=== PATIENT | male | born 1940 | race Caucasian/White ===

== ENCOUNTER → 2017-08-14 | Outpatient (CLI) | payer OTHER ==
--- NOTE | 2017-08-14 12:59 | DIAGNOSTIC IMAGING REPORT ---
ULTRASOUND KIDNEYS AND BLADDER CLINICAL HISTORY: Nephrolithiasis. COMPARISON STUDY: Abdominal CT dated 02/03/2016. TECHNIQUE: Real-time, grayscale, and color flow sonography of the kidneys and bladder is performed. Images are reviewed in the transverse and longitudinal planes. FINDINGS: Kidneys: The kidneys demonstrate cortical atrophy and are normal in echotexture. The right kidney measures 14.0 x 4.6 x 5.8 cm and the left kidney measures 13.7 x 6.1 x 5.6 cm. There is no hydronephrosis. No shadowing renal calculi are identified. There are numerous simple cysts seen in both kidneys. The largest is present on the left and measures 3.9 cm. A 2.9 cm complex structure in the right renal pelvis likely represents a complex/hemorrhagic cyst when correlated with the 2016 CT scan. There is no sonographic evidence of contour deforming renal mass lesion. No perinephric fluid is identified. Bladder: The prostate gland is enlarged and heterogeneous, measuring 5.7 cm in transverse diameter. There is median lobe hypertrophy. The bladder wall is thickened and trabeculated indicating chronic outlet obstruction. Bilateral ureteral jets were seen. IMPRESSION: 1. The kidneys demonstrate mild cortical atrophy and are without hydronephrosis. 2. Numerous bilateral renal cysts are identified as above. A complex cyst is again noted in the right renal pelvis. 3. No shadowing calculi are identified. 4. Prostatomegaly with evidence of chronic bladder outlet obstruction. Electronically signed by: Igor Martínez M.D. 08/14/2017 12:58 PM Dictated Date/Time: 08/14/2017 12:55 PM
== END | disposition home or self-care (01) ==
LOC: C.ULTR 11:30
PROVIDERS: ATTEND Urology
DX: N20.0 Calculus of kidney (principal)

== ENCOUNTER 2021-11-20 20:56 | Observation (INO) ==
[2021-11-20] MEDS ORDERED: MoRPHine SULFATE 2 MG/ML CARP IV STA (21:42)
[2021-11-20] MEDS ORDERED: MoRPHine SULFATE 4 MG/ML 1 ML CARP\\VIAL IV STA (23:00)
--- NOTE | 2021-11-20 23:00 | Emergency Department Note ---
History of Present Illness General Chief complaint: Fall Stated complaint: FALL w/LOC Time Seen by Provider: 11/20/21 21:29 Source: patient and family Mode of arrival: EMS Limitations: no limitations History of Present Illness Provider complaint: fall, head trauma Onset (ago): hour(s) Location: head This is a 81 yo male brought by EMS with at bedside after an accidental fall at home. Patient uses a walker. states he got up with his walker, tried to turn and became off balance and fell, striking his head and face. She does not believe he lost consciousness. No seizure like activity noted. There was increased bleeding from an area of a wound related to known melanoma. Patient with several facial lesions, covered with dressing. states a nurse comes to change the dressing every other day. Patient admits to pain over the left eyebrow, denies any other headaches, neck or back pain, chest pain, abdominal pain, nausea, dizziness, or vision changes. states he does become tired and lightheaded easily, is occasionally confused, and sometimes does become off balance. states he has decided not to pursue any additional treatment for his melanoma and has been in hospice for 2 months. Pt seen during a time of high acuity and national emergency pandemic while wearing PPE. Home Medications Medication Instructions Recorded Confirmed Type amlodipine 2.5 mg tablet 2.5 mg PO QAM 01/14/21 01/17/21 History aspirin 81 mg tablet,delayed 81 mg PO QPM 01/14/21 01/17/21 History release cholecalciferol (vitamin D3) 25 25 mcg PO QAM 01/14/21 01/14/21 History mcg (1,000 unit) capsule cyanocobalamin (vitamin B-12) 500 500 mcg PO QAM 01/14/21 01/14/21 History mcg tablet hydrochlorothiazide 25 mg tablet 12.5 mg PO Q2D 01/14/21 01/17/21 History insulin detemir U-100 100 unit/mL 34 unit SUBCUT HS 01/14/21 01/17/21 History (3 mL) subcutaneous pen levothyroxine 50 mcg capsule 50 mcg PO QAM 01/14/21 01/17/21 History losartan 100 mg tablet 100 mg PO QAM 01/14/21 01/14/21 History magnesium oxide 400 mg PO QAM 01/14/21 01/14/21 History metformin 500 mg tablet 1,000 mg PO BID 01/14/21 01/17/21 History metoprolol succinate 50 mg 50 mg PO BID 01/14/21 01/17/21 History tablet,extended release 24 hr simvastatin 20 mg tablet 20 mg PO PM 01/14/21 01/17/21 History trazodone 50 mg tablet 50 mg PO HS 01/14/21 01/17/21 History oxycodone-acetaminophen 5 mg-325 1 tab PO Q6H PRN #14 tab 01/17/21 Rx mg tablet (Percocet) insulin detemir U-100 100 unit/mL unit SUBCUT 11/20/21 11/20/21 History (3 mL) subcutaneous pen (Levemir FlexTouch U-100 Insulin) morphine concentrate 100 mg/5 mL 100 mg PO 11/20/21 History (20 mg/mL) oral solution nortriptyline 10 mg capsule 10 mg PO 11/20/21 History sennosides 8.6 mg tablet (Senna 8.6 mg PO 11/20/21 History Laxative) trazodone 50 mg tablet 50 mg 11/20/21 History Allergies Allergy/AdvReac Type Severity Reaction Status Date / Time No Known Allergies Allergy Verified 01/17/21 07:12 Past Med/Surg History Medical History Atrial fibrillation No longer on Coumadin 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 CAD (coronary artery disease) Moderate per 2006 cath CKD (chronic kidney disease) stage 3, GFR 30-59 ml/min Diabetes mellitus Type II Dyslipidemia History of TIA (transient ischemic attack) 2005-NO ISSUES SINCE Hypertension Hypothyroidism Kidney stones Pacemaker Placed initially in 2005 ([facility]); revision of device 2016 Renal mass Noted on u/s in 2016- followed by urology Squamous cell carcinoma, scalp/neck Surgical History History of cholecystectomy History of colonoscopy History of cystoscopy FOR KIDNEY STONES S/P placement of cardiac pacemaker Family History Father Family history of diabetes mellitus Mother Family hx of colon cancer Social History Smoking Status: Never smoker Second Hand Exposure: No; Do You Dip or Chew Tobacco: No; Tobacco Cessation Education Requested by Patient: No Hx Alcohol Use: No Hx Substance Use: No Preferred Language: Peruvian Communication Ability: Impaired Line Production Cook Required: No Beliefs That Will Affect Care: None Current Living Situation: Spouse current occupational status: retired Other Information That Helps Us Care for You: No Feels Safe at Home: Yes Safety Concerns: Feels Safe At This Time Assistive Devices: Walker Review of Systems A total of 10 systems reviewed and were otherwise negative All systems reviewed & are unremarkable except as noted in HPI & below Physical Exam Vital Signs Vital Signs - 24 hr 11/20/21 21:18 Temperature 36.7 C Temperature Source Oral Pulse Rate 120 H Respiratory Rate 20 Respiratory Effort / Characteristics Non-Labored Spontaneous Blood Pressure 174/101 H Blood Pressure Mean 125 Pulse Oximetry 99 Oxygen Delivery Method Room Air Sepsis New/Unexplained Change in Mental Status No Sepsis Action Taken by Nursing No Action Required GENERAL: alert, unwell appearing, well nourished, no distress, non-toxic HEAD: nc, contusion noted left lateral forehead, multiple wounds noted to left face, covered with dressing, cheek wound appears to have some drainage; no further active bleeding from left congregation wound, large scaly/crusted growth noted at left mandible, right sided lesion involving ear EYE EXAM: normal conjunctiva, PERRL and EOM's grossly intact OROPHARYNX: no exudate, no erythema, lips, buccal mucosa, and tongue normal and mucous membranes are moist NECK: supple, no nuchal rigidity, no adenopathy, non-tender LUNGS: Clear to auscultation. Normal chest wall mechanics, no w/r/r CHEST WALL: no pain with palpation, no crepitus HEART: no murmurs, S1 normal and S2 normal ABDOMEN: abdomen soft, non-tender, normo-active bowel sounds, no masses, no rebound or guarding. BACK: Back is symmetrical on inspection and there is no deformity, no midline tenderness, no CVA tenderness. SKIN: no rashes and no bruising UPPER EXTREMITIES: upper extremities are grossly normal. FROM, nml pulses b/l. No evidence of trauma or deformity. LOWER EXTREMITIES: No pitting edema. FROM, nml pulses b/l. No evidence of trauma or deformity. NEURO EXAM: Normal sensorium, cranial nerves II-XII grossly intact, normal speech, no gross weakness of arms, no gross weakness of legs. Gross sensation intact. Course Course 2315: I updated the patient and at bedside on the findings of the CT. Extensive conversation regarding condition and risks with new injury. Patient is currently hospice patient due to his advanced melanoma. Patient's requested to contact her son and I updated him at her request over the phone on the CT findings in addition. They would like to discuss options for treatment at this time. 2336: doesn't want him transferred to a trauma facility, would like to keep in at home in hospice. 2355: DAughter concerned about 's ability to care for him with worsening weakness and now accompanying head injury. Discussed observation here while they have hospice make additional arrangement for his care at home. Administered Medications Hydromorphone HCl (Hydromorphone Inj 0.5 Mg/0.5 Ml Syr) 0.5 mg IV Q3H PRN PRN Reason: Pain Stop: 12/05/21 03:19 Last Admin: 11/21/21 11:45 Dose: 0.5 mg Documented by: [id number] Insulin Aspart (Insulin Aspart Per Unit) 0 units SC ACHS GORDY Stop: 12/21/21 07:29 Last Admin: 11/22/21 20:47 Dose: 2 units Documented by: [id number] Cosigned by: [id number] Admin: 11/22/21 18:12 Dose: 2 units Documented by: [id number] Cosigned by: [id number] Admin: 11/22/21 13:13 Dose: 2 units Documented by: [id number] Cosigned by: [id number] Admin: 11/22/21 08:50 Dose: 5 units Documented by: [id number] Cosigned by: [id number] Admin: 11/21/21 20:55 Dose: 2 units Documented by: [id number] Cosigned by: [id number] Admin: 11/21/21 18:22 Dose: 1 units Documented by: [id number] Cosigned by: [id number] Admin: 11/21/21 13:12 Dose: 1 units Documented by: [id number] Cosigned by: [id number] Admin: 11/21/21 08:39 Dose: 13 units Documented by: [id number] Cosigned by: [id number] Discontinued Medications Sodium Chloride (Nss 1000ml) 1,000 mls @ 50 mls/hr IV .Q20H GORDY Stop: 12/21/21 03:19 Last Infusion: 11/21/21 18:01 Dose: 0 mls/hr Documented by: [id number] Admin: 11/21/21 03:49 Dose: 50 mls/hr Documented by: [id number] Morphine Sulfate (Morphine Sulfate 2 Mg/Ml Carp) 2 mg IV NOW STA Stop: 11/20/21 21:43 Last Admin: 11/20/21 22:11 Dose: 2 mg Documented by: [id number] Morphine Sulfate (Morphine Sulfate 4 Mg/Ml 1 Ml Carp\Vial) 4 mg IV NOW STA Stop: 11/20/21 23:01 Last Admin: 11/20/21 23:06 Dose: 4 mg Documented by: [id number] Morphine Sulfate (Morphine Sulfate 2 Mg/Ml Carp) 2 mg IV NOW STA Stop: 11/21/21 01:24 Last Admin: 11/21/21 01:47 Dose: 2 mg Documented by: [id number] Morphine Sulfate (Morphine Sulfate 2 Mg/Ml Carp) 2 mg IV NOW STA Stop: 11/21/21 01:38 Last Admin: 11/21/21 01:47 Dose: 2 mg Documented by: [id number] Ondansetron HCl (Ondansetron Inj 2 Mg/Ml 2 Ml Vial) 4 mg IV NOW STA Stop: 11/21/21 01:38 Last Admin: 11/21/21 01:47 Dose: 4 mg Documented by: [id number] Critical Care Time Critical Care Time: Yes Total Critical Care Time: 35 Critical care of 35 min performed to assess and manage high likelihood of life- threatening traumatic SAH, involving labs and imaging performed with assessment to evaluate CHI with SAH diagnosis with frequent reassessment. This time includes bedside time, treatment discussions with patient/family/consultants, documentation time and excludes procedure time. Medical Decision Making Differential Diagnosis Differential diagnoses include major intracranial, cervical, spinal, thoracic, abdominal, pelvic and neurologic injury. Fracture, contusion, sprain, strain, laceration, abrasions included as well. Medical Records Attestation: I reviewed the patient's medical records. Home Medications Current Medication List: was personally reviewed by me Laboratory Data Attestation: I reviewed the patient's lab results. Lab Results 11/21/21 Range/Units 01:30 SARS-CoV-2, RNA, NAAT NEGATIVE (NEGATIVE) Imaging Data Radiologist's Impression: CT head: Moderate left anterior temporal scalp hematoma. Mild bifrontal subarachnoid hemorrhage. No skull fracture. Large right mastoid effusion. And soft tissue thickening right external auditory canal, including a small droplet of air superficial to the right parotid gland, nonspecific and age-indeterminate. Acute infection not excluded. Moderate motion artifact limits evaluation. Radiologist: Marce Nails MD CT C-spine: No fracture or acute bony abnormality. Moderate to severe degenerative disc and facet disease. Partially imaged right mastoid effusion and soft tissue air, superficial to the parotid gland. Incidental right jugular central line. Radiologist: Marce Nails MD MDM Narrative THis is an 81 yo male on hospice due to significant melanoma who presents following a fall. Patient sent for CT imaging and sound to have traumatic SAH. Discussed options with his who also contacted other family. Patient will be admitted here for observation to allow to make additional arrangement with hospice for his continued care at home. No transfer. Patient is DNR/DNI. CAse discussed with hospitalist. patient given several doses of morphine for pain. Impression & Plan CHI (closed head injury), Subarachnoid hemorrhage, Fall at home, Melanoma Discharge Plan Visit Data Chief Complaint: Fall Stated Complaint: FALL w/LOC ED Provider: Shari Means Discharge Problem: CHI (closed head injury), Subarachnoid hemorrhage, Fall at home, Melanoma Patient Disposition: Admitted As Inpatient Discharge Instructions Interventions: ED Discharge Assessment Last Done: 11/21/21 02:56 Discharge Problem: CHI (closed head injury) Qualifiers: Encounter type: initial encounter Qualified Code(s): S09.90XA - Unspecified injury of head, initial encounter Fall at home Qualifiers: Encounter type: initial encounter Qualified Code(s): W19.XXXA - Unspecified fall, initial encounter Melanoma Qualifiers: Melanoma location: unspecified site Qualified Code(s): C43.9 - Malignant melanoma of skin, unspecified
[2021-11-21] MEDS ORDERED: MoRPHine SULFATE 2 MG/ML CARP IV STA ×2 (01:23→01:37)
[2021-11-21] MEDS ORDERED: ONDANSETRON INJ 2 MG/ML 2 ML VIAL IV STA (01:37)
[2021-11-21] MEDS ORDERED: SODIUM CHLORIDE 0.9% 1000ML 1,000 ML IV SCH (03:20)
[2021-11-21] MEDS ORDERED: POLYETHYLENE (MIRALAX) 17 GM PACK PO PRN (03:20)
[2021-11-21] MEDS ORDERED: HYDROmorphone INJ 0.5 MG/0.5 ML SYR IV PRN (03:20)
[2021-11-21] MEDS ORDERED: ACETAMINOPHEN 325 MG TAB PO PRN (03:20)
[2021-11-21] MEDS ORDERED: ONDANSETRON INJ 2 MG/ML 2 ML VIAL IV PRN (03:20)
[2021-11-21] MEDS ORDERED: GLUCAGON FOR INJ 1 MG VIAL IM PRN (03:45)
[2021-11-21] MEDS ORDERED: GLUCOSE 40% GEL 15 GM TUBE PO PRN (03:45)
[2021-11-21] MEDS ORDERED: DEXTROSE 50% 50 ML SYRINGE IV PRN (03:45)
[2021-11-21] MEDS ORDERED: GLUCOSE 10 TABS/TUBE PO PRN (03:45)
[2021-11-21] MEDS ORDERED: CARBOHYDRATES FOR HYPOGLYCEMIA PO PRN (03:45)
--- NOTE | 2021-11-21 07:24 | History and Physical Report ---
CHIEF COMPLAINT: Fall, subarachnoid hemorrhage. HISTORY OF PRESENT ILLNESS: An 81-year-old male with past medical history significant for diabetes, chronic kidney disease, hypertension, history of metastatic squamous cell carcinoma of skin, who is on hospice care at home, comes with a fall while ambulating today. He ambulates with a walker. Imaging studies show frontal subarachnoid hemorrhage. He is living with his . brought him to the hospital. The family did not want him to transfer to tertiary care. They want to keep him comfortable. Plan for possible [facility] hospice tomorrow and possible home hospice if he is stable later with more help at home. The patient is currently receiving morphine and resting comfortably. Denies any pain currently. Denies any chest pain or shortness of breath. Denies any nausea, but could not get much history from the patient.Able to talk with her daughter, Lilian, who is the power of staff attorney. Her phone number is [phone]. She lives in [place]. She says she is coming once every week to see her father and mother. Her brother is also in [place], who is able to drive today and he took their mother to the house. Mother had a stroke 6 years ago and with the current situation, they think, she could not take care of their dad. Before he goes home, they want more help at home. Case management is emergency respite care which seems allows for 5 days in the [facility] hospice. As per the daughter, currently he is under home hospice, not getting any treatment for his metastatic squamous cell carcinoma. As per heme/onc notes on 08/03/2021, the patient had received immunotherapy with followup CT scan showing disease progression and after that, the patient declined any further therapy and is currently under hospice care. As per daughter, there was no recent fever or chills. No nausea, no vomiting, no diarrhea. Appetite is coming down and is getting more weak lately. Ambulating has become difficult lately. ALLERGIES: No known drug allergies. PAST MEDICAL HISTORY: As mentioned above. PAST SURGICAL HISTORY: Colonoscopy, laparoscopic cholecystectomy, tonsillectomy, repair of inguinal hernia. MEDICATIONS: As per Epic, nortriptyline 10 mg p.o. at bedtime, lidocaine viscous throat solution p.r.n., metronidazole 250 mg powder sprinkled into the wound during each dressing, morphine sulfate 0.25 mL every 4 hours p.r.n., hydroxyzine 25 mg p.o. t.i.d. p.r.n., Levemir 38 units at bedtime, trazodone 50 mg p.o. at bedtime, levothyroxine 50 mcg p.o. daily. FAMILY HISTORY: Significant for mother had colon cancer, father had diabetes, heart disorder. Paternal grandmother had diabetes. SOCIAL HISTORY: Currently living with his . No tobacco use in the past. No alcohol. No drug use. REVIEW OF SYSTEMS: As per HPI. Could not complete review of systems as the patient is currently confused. PHYSICAL EXAMINATION: GENERAL: The patient is drowsy, not in acute distress. VITAL SIGNS: Temperature 36.7, pulse 109, respiratory rate 20, blood pressure 176/106, oxygen 98% on room air. HEENT: Has large wound in his right neck region below the ear, dressing on his left temporal region. Oral mucosa dry. CARDIOVASCULAR: S1 and S2 heard. Regular rate and rhythm. No murmur, no gallop. RESPIRATORY SYSTEM: Normal AP diameter. No accessory muscle use. No wheezing, no crackles. ABDOMEN: Soft, bowel sounds present, nontender, no distention. CENTRAL NERVOUS SYSTEM: Drowsy, tries to answer simple questions, moving extremities. EXTREMITIES: No edema, no erythema. LABORATORY DATA: SARS-CoV-2 negative. IMAGING DATA: CT of the head, preliminary report, moderate left anterior temporal scalp hematoma. Mild bifrontal subarachnoid hemorrhage, no skull fracture. Cervical spine CT, preliminary report, no fracture or acute bony abnormality. ASSESSMENT AND PLAN: This is an 81-year-old male who is on home hospice care for his metastatic squamous cell carcinoma of skin, presents with a fall and has subarachnoid hemorrhage. Currently, goal is to keep the patient comfortable, no transfer as per the family. The patient is DNR/DNI. Coming from hospice from home. Plan for hospice [facility] and eventually if stable, plan for hospice home with more help.. 1. Metastatic squamous cell carcinoma of skin, currently under hospice care with pain control, wound care and dressings. 2. Diabetes. We will place him on insulin sliding scale. 3. Hypothyroidism Synthroid if he is able to take p.o. 4. Deep venous thrombosis prophylaxis with SCD. DISPOSITION: To be determined. Social service to help with discharge planning. CODE STATUS: DNR/DNI. Job ID: [id number] [facility]ITALStacy
--- NOTE | 2021-11-21 07:31 | CT Scan Report ---
CT head/brain wo con CLINICAL HISTORY: 81 years-old Male with trauma. Acute head trauma status post fall TECHNIQUE: Multiple axial CT images of the head were obtained without contrast. A dose lowering tech nique was utilized adhering to the principles of ALARA. COMPARISON: Outside institution PET CT 10/18/2020 FINDINGS: Age-related involutional changes with white matter hypodensities suggestive of chronic microvascular ischemic disease. The study is mildly motion degraded. Trace acute subarachnoid hemorrhage of the natasha ateral frontal lobes (please see images 21 and 24 of series 2). Trace layering hemorrhage is noted wi thin the posterior horn of the left lateral ventricle. No acute intraparenchymal hemorrhage, midline shift, hydrocephalus or intracranial mass. There is a large right mastoid effusion with fluid also noted within the right middle ear cavity. No definite acute calvarial or temporal bone fracture identified. The left mastoid air cells and paranas al sinuses are clear. There are several scalp contusions with suggested lacerations of the bilateral cheeks. Prior bilateral lens repair. Soft tissue swelling within the right external auditory canal. IMPRESSION: 1. Trace acute subarachnoid hemorrhage of the frontal lobes with trace layering hemorrhage within the posterior horn left lateral ventricle. 2. No acute intraparenchymal hemorrhage or midline shift. 3. There are several scalp contusions without acute calvarial fracture identified. 4. Large right mastoid effusion with soft tissue swelling within the distribution of the right chrome plater al auditory canal. These findings are new from 10/18/2020. Within the setting of acute trauma, finding s may be associated with an occult temporal bone fracture. Follow-up recommended. ACT 112: Negative or not required by law. The above report was generated using voice recognition software. It may contain grammatical, syntax o r spelling errors. Electronically signed by: Marquise Bui M.D. 11/21/2021 7:30 AM
[2021-11-21] MEDS: INSULIN ASPART PER UNIT SC SCH ×4 (08:39→20:55)
--- NOTE | 2021-11-21 08:50 | CT Scan Report ---
CT cervical spine wo con CT DOSE: 1244.72 mGy.cm CLINICAL HISTORY: 81 years-old Male with trauma. Acute neck trauma COMPARISON: Head CT of same day TECHNIQUE: Multiple axial CT images of the cervical spine were obtained without contrast. A dose low ering technique was utilized adhering to the principles of ALARA. FINDINGS: Severe multilevel bridging osteophytosis with facet arthrosis. Multilevel intervertebral di sc space narrowing, severe at C5-C6. No acute fracture or subluxation of the cervical spine identifie d. Multilevel neural foraminal narrowing. Large right mastoid effusion with soft tissue edema within the distribution of the external auditory canal. Masslike soft tissue prominence lateral to the right parotid gland measures up to 5.1 cm. Flui d is also present within the right middle ear cavity. No pneumothorax. Right IJ central venous cathet er. IMPRESSION: 1. No acute cervical spine fracture or subluxation. 2. Large right mastoid and middle ear effusions. Masslike soft tissue prominence lateral to the right parotid gland measures over 5 cm with inflammatory stranding within the adjacent soft tissues of the neck and right parotid gland. Correlate with clinical exam findings to exclude a soft tissue mass. ACT 112: Negative or not required by law. The above report was generated using voice recognition software. It may contain grammatical, syntax o r spelling errors. Electronically signed by: Marquise Bui M.D. 11/21/2021 8:48 AM
--- NOTE | 2021-11-21 09:24 | CT Scan Report ---
CT head/brain wo con CLINICAL HISTORY: 81 years-old Male with subarachnoid hemorrhage. Follow-up study in a patient with subarachnoid hemorrhage. TECHNIQUE: Multiple axial CT images of the head were obtained without contrast. A dose lowering tech nique was utilized adhering to the principles of ALARA. CT DOSE: 614.27 mGy.cm COMPARISON: CT head and cervical spine studies 11/20/2021, PET CT 10/18/2020 FINDINGS: Age-related involutional changes with white matter hypodensities suggestive of chronic microvascular ischemic disease. The study is mildly motion degraded. Trace acute subarachnoid hemorrhage of the natasha ateral frontal lobes redemonstrated along with trace layering hemorrhage within the posterior horn of the left lateral ventricle. No acute intraparenchymal hemorrhage, midline shift, hydrocephalus or in tracranial mass. The study is mildly motion degraded. There is a large right mastoid effusion with fluid also noted within the right middle ear cavity. No definite acute calvarial or temporal bone fracture identified. The left mastoid air cells and paranas al sinuses are clear. There Prior bilateral lens repair. Areas of apparent cutaneous ulceration are a gain noted within the bilateral cheeks. Multifocal areas of soft tissue thickening are noted within t he scalp and right external auditory canal distribution. IMPRESSION: 1. Mildly motion degraded exam. Trace subarachnoid hemorrhage of the frontal lobes with trace layerin g hemorrhage within the posterior horn left lateral ventricle appears stable from prior. 2. No new areas of acute intracranial hemorrhage or midline shift. 3. Multifocal areas of soft tissue swelling throughout the scalp with cutaneous ulceration. 4. Large right mastoid and middle ear effusions. ACT 112: Negative or not required by law. The above report was generated using voice recognition software. It may contain grammatical, syntax o r spelling errors. Electronically signed by: Marquise Bui M.D. 11/21/2021 9:23 AM
[2021-11-22] MEDS: INSULIN ASPART PER UNIT SC SCH ×4 (08:50→20:47)
--- NOTE | 2021-11-22 18:47 | Hospitalist Progress Note ---
Date of Service November 22, 2021 Assessment & Plan (1) Squamous cell skin cancer: (2) Subarachnoid hemorrhage: (3) Fall at home: Plan: Mr Nolan Goetz is a 81-year-old male who is on home hospice care for his metastatic squamous cell carcinoma of skin, presents with a fall and has trace subarachnoid hemorrhage. Currently, goal is to keep the patient comfortable, no transfer as per the family. Goals of Care -Patient remains here while awaiting placement to facility for hospice and respite care for family 1. Metastatic squamous cell carcinoma of skin, currently under hospice care with pain control, wound care and dressings. 2. Diabetes. We will place him on insulin sliding scale. 3. Hypothyroidism Synthroid if he is able to take p.o. 4. Deep venous thrombosis prophylaxis with SCD. Admission and Anticipated Discharge Date Admission Date: November 21, 2021 Subjective Patient with no complaints Very poor historian, unable to answer questions Physical Exam Physical Exam: Patient is confused, both legs are dangling off bed, appears chronically ill Respiratory: breathing comfortably on room air Cardiovascular: regular rate and rhythm Gastrointestinal (Abdomen): soft Musculoskeletal: no edema Skin: large lesion on right side of face Neurologic: confused Results & Data Results & Data ([facility]) Vital Signs (Past 12 Hours) Vital Signs Temp Pulse Resp BP Pulse Ox 11/22/21 15:05 36.6 C 114 H 20 155/85 H 94 11/22/21 08:19 36.9 C 126 H 16 143/80 H 96
[2021-11-23] MEDS: INSULIN ASPART PER UNIT SC SCH ×2 (08:46→12:56)
--- NOTE | 2021-11-23 17:15 | Discharge Summary ---
Date of Service November 23, 2021 Admission HPI Per Admitting Provider An 81-year-old male with past medical history significant for diabetes, chronic kidney disease, hypertension, history of metastatic squamous cell carcinoma of skin, who is on hospice care at home, comes with a fall while ambulating today. He ambulates with a walker. Imaging studies show frontal subarachnoid hemorrhage. He is living with his . brought him to the hospital. The family did not want him to transfer to tertiary care. They want to keep him comfortable. Plan for possible shelter hospice tomorrow and possible home hospice if he is stable later with more help at home. The patient is currently receiving morphine and resting comfortably. Denies any pain currently. Denies any chest pain or shortness of breath. Denies any nausea, but could not get much history from the patient.Able to talk with her daughter, Lilian, who is the power of commercial litigation attorney. Her phone number is [phone]. She lives in [place]. She says she is coming once every week to see her father and mother. Her brothe luh is also in [place], who is able to drive today and he took their mother to the house. Mother had a stroke 6 years ago and with the current situation, they think, she could not take care of their dad. Before he goes home, they want more help at home. Case management isemerg[facility] resp[facility] carewhich seems allows for 5 days in the shelter hospice. As per the daughter, currently he is under home hospice, not getting any treatment for his metastatic squamous cell carcinoma. As per heme/onc notes on 08/03/2021, the patient had received immunotherapy with followup CT scan showing disease progression and after that, the patient declined any further therapy and is currently under hospice care. As per daughter, there was no recent fever or chills. No nausea, no vomiting, no diarrhea. Appetite is coming down and is getting more weak lately. Ambulating has become difficult lately. Principal Diagnosis Hospice Comfort measures only Squamous cell skin cancer Trace subarachnoid hemorrhage Fall at home Discharge Exam No acute distress, confused, non toxic Respiratory breathing comfortably on room air Cardiovascular regular rate and rhythm, no murmurs/rubs/gallops Skin Large right cancerous mass on right side of face Neurologic Baseline dementia, spontaneously moving extremities Discharge Data Allergies Allergy/AdvReac Type Severity Reaction Status Date / Time No Known Allergies Allergy Verified 01/17/21 07:12 Consultations 11/21/21 00:59 ED Decision to Admit Stat Ordered Studies 11/20/21 21:42 CT cervical spine wo con Stat CT head/brain wo con Stat 11/21/21 08:00 CT head/brain wo con Routine Hospital Course (1) Squamous cell skin cancer: (2) Subarachnoid hemorrhage: (3) Fall at home: Mr Nolan Goetz is a 81-year-old male who is on home hospice care for his met astatic squamous cell carcinoma of skin, presents with a fall found to have a trace subarachnoid hemorrhage.His is having difficulty caring for him at home and he was admitted here and placed into a facility for respite care. He remained here for several days until he was placed to [facility]. He had a repeat CT head one day after his first scan which showed stable trace subarachnoid hemorrhage. At discharge, his medications were pared down to essential comfort focused medications only. Total Time Total Time Spent Total Time Spent (In Minutes): 35 Discharge Plan Discharge Items Patient Disposition: Transfer [facility] Fac Reason For Visit: FALL Discharge Diagnosis: Hospice Comfort measures only Squamous cell skin cancer Condition on Discharge: Fair Activity: Resume your previous activity Non-emergency contact: Primary Care Provider Call non-emergency contact if: you have any medication questions Follow-up/Referrals: Deshawn Schmitt DO [Primary Care Provider] - Diet: Regular Diet Texture: Easy to Chew Addtl Attending Provider Instructions: None Pending Studies at Discharge: No Stand-Alone Forms: My [employer] Skilled Items Patient informed of condition?: Yes DNR: Yes Discharge Level of Care: Skilled Communicable Disease: No Discharge Prognosis: Stable Lines: None Urinary Catheter: No Medications and DC Order Prescriptions: Continued levothyroxine 50 mcg Capsule 50 mcg PO QAM RF: 0 metoprolol succinate 50 mg Tablet Extended Release 24 Hr 50 mg PO BID RF: 0 trazodone 50 mg Tablet 50 mg PO HS 60 Days Qty: 30 RF: 0 Changed sennosides [Senna Laxative] 8.6 mg tablet 8.6 mg PO DAILY 30 Days Qty: 30 RF: 0 morphine concentrate 100 mg/5 mL (20 mg/mL) solution 5 mg PO Q3H PRN (Reason: pain) 30 Days Qty: 20 RF: 0 nortriptyline 10 mg capsule 10 mg PO DAILY 60 Days Qty: 30 RF: 0 Discontinued amlodipine 2.5 mg Tablet 2.5 mg PO QAM RF: 0 aspirin 81 mg Tablet,Delayed Release (Dr/Ec) 81 mg PO QPM RF: 0 cyanocobalamin (vitamin B-12) 500 mcg Tablet 500 mcg PO QAM RF: 0 hydrochlorothiazide 25 mg Tablet 12.5 mg PO Q2D RF: 0 cholecalciferol (vitamin D3) 25 mcg (1,000 unit) Capsule 25 mcg PO QAM RF: 0 insulin detemir U-100 100 unit/mL (3 mL) Insulin Pen 34 unit SUBCUT HS RF: 0 metformin 500 mg Tablet 1,000 mg PO BID RF: 0 losartan 100 mg Tablet 100 mg PO QAM RF: 0 magnesium oxide 400 mg magnesium Capsule 400 mg PO QAM RF: 0 simvastatin 20 mg Tablet 20 mg PO PM RF: 0 oxycodone-acetaminophen [Percocet] 5-325 mg tablet 1 tab PO Q6H PRN (Reason: pain) Qty: 14 RF: 0 trazodone 50 mg tablet 50 mg RF: 0 Levemir FlexTouch U-100 Insuln 100 unit/mL (3 mL) insulin pen SUBCUT RF: 0 Discharge Orders: Discharge Order (Routine); Ordered 11/23/21 Ordered By: Sophia James Admission Data Admit Date/Time: 11/21/21 01:51 Attending Provider: Sophia James Admit Provider: Charlie Birmingham Primary Care Provider: Deshawn Schmitt Other Providers: Charlie Birmingham ; [place] ; Flaco Ramirez Other Interventions: Discharge Summary Assessment (RN) Last Done: 11/23/21 16:26
== END 2021-11-23 14:20 ==
LOC: ED 20:56 → 3N 20:56 → SUATTDRO 11-21 01:51 → 3N 11-21 02:56